=== PATIENT | male | born 1980 | race Hispanic/Latino ===

== ENCOUNTER 2018-05-13 09:44 | Emergency (ER) | payer SELFPAY ==
[2018-05-13 10:31] VITALS: RESP 18; TEMP 98.5
[2018-05-13] MEDS ORDERED: Sodium Chloride 0.9% 1,000 ML IV STA ×2 (11:01→14:45)
[2018-05-13 11:24] LABS: BASO # 0.04 K/mm3 (0.0-2.0); BASO % 0.6 % (0.0-3.0); EOS # 0.1 (0.0-0.7); EOS % 0.7 % (1.5-5.0); GRAN # 5.01 (1.4-6.5); GRAN % 70.2 % (50.0-68.0); HEMOGLOBIN 15.9 g/dL (14.0-18.0); LYMPH # 1.5 (1.2-3.4); LYMPH % 21.1 % (22.0-35.0); MEAN CELL VOLUME 89.8 fl (80.0-105.0); MEAN CORPUSCULAR HEMOGLOBIN 31.1 pg (25.0-35.0); MEAN CORPUSCULAR HGB CONC 34.6 g/dl (31.0-37.0); MEAN PLATELET VOLUME 9.5 fl (7.0-11.0); MONO # 0.5 (0.1-0.6); MONO % 7.4 % (1.0-6.0); RBC 5.12 10^6/uL (3.5-6.1); RED CELL DISTRIBUTION WIDTH 12.6 % (11.5-14.5); WHITE BLOOD COUNT 7.1 10^3/uL (4.5-11.0)
[2018-05-13 11:30] LABS: INR 0.95; PARTIAL THROMBOPLASTIN TIME 27.1 Seconds (25.1-36.5); PROTHROMBIN TIME 10.9 SECONDS (9.4-12.5)
[2018-05-13] MEDS ORDERED: Morphine 2 mg/ml ISec IVP STA ×2 (12:07→14:23)
[2018-05-13 12:08] LABS: URINE BILIRUBIN NEGATIVE (NEGATIVE); URINE BLOOD NEGATIVE (NEGATIVE); URINE GLUCOSE (UA) NEGATIVE (NEGATIVE); URINE LEUKOCYTE ESTERASE NEGATIVE Leu/uL (NEGATIVE); URINE PROTEIN NEGATIVE mg/dL (<30 mg/dL); URINE UROBILINOGEN 0.2 E.U./dL (<1 E.U./dL)
[2018-05-13 12:13] LABS: URINE APPEARANCE CLEAR (CLEAR); URINE COLOR YELLOW (YELLOW)
[2018-05-13 12:25] LABS: ALB/GLOB RATIO 1.4 (1.1-1.8); ALBUMIN 4.7 g/dL (3.0-4.8); ALT/SGPT 42 U/L (7-56); AMYLASE 100 U/L (35-125); AST/SGOT 39 U/L (17-59); BLOOD UREA NITROGEN 16 mg/dL (7-21); CALCIUM 9.6 mg/dL (8.4-10.5); GFR NON-AFRICAN AMERICAN > 60; LIPASE 78 U/L (23-300)
[2018-05-13 12:35] LABS: TROPONIN I < 0.01 ng/mL
[2018-05-13] MEDS ORDERED: Iohexol 350 MG/100 ML VIAL ONE (12:39)
--- NOTE | 2018-05-13 13:06 | RAD ---
HISTORY: abdominal pain COMPARISON: None available. TECHNIQUE: Chest, one view. FINDINGS: LUNGS: Mild right basilar atelectasis/infiltrate. No focal consolidation. Please note that chest x-ray has limited sensitivity for the detection of pulmonary masses. PLEURA: No significant pleural effusion identified. No definite pneumothorax . CARDIOVASCULAR: Heart size appears within normal limits. No significant atherosclerotic calcification present. OSSEOUS STRUCTURES: No acute osseous abnormality identified. VISUALIZED UPPER ABDOMEN: Unremarkable. OTHER FINDINGS: None. IMPRESSION: Mild bibasilar atelectasis/infiltrate.
--- NOTE | 2018-05-13 13:43 | CT ---
Date of service: 05/13/2018 PROCEDURE: CT Abdomen and Pelvis with contrast HISTORY: abdominal pain, h/o obstruction, h/o colectomy COMPARISON: None available TECHNIQUE: Contrast dose: 100 mL Omnipaque 350 IV Radiation dose: Total exam DLP = 674.44 mGy-cm. This CT exam was performed using one or more of the following dose reduction techniques: Automated exposure control, adjustment of the mA and/or kV according to patient size, and/or use of iterative reconstruction technique. FINDINGS: LOWER THORAX: No visible consolidation, pleural effusion, or pneumothorax. LIVER: Unremarkable. GALLBLADDER AND BILE DUCTS: Unremarkable. PANCREAS: Unremarkable. SPLEEN: Unremarkable. ADRENALS: Unremarkable. KIDNEYS AND URETERS: The kidneys enhance symmetrically. No hydronephrosis or obstructing calculus identified. VASCULATURE: No aortic aneurysm. No atherosclerotic calcification or mural plaque present. BOWEL: Stomach is nondistended. Lack of oral contrast limits evaluation for bowel pathology. No evidence of small-bowel obstruction. Evidence of subtotal colectomy with ileosigmoid anastomosis. APPENDIX: PERITONEUM: No significant free fluid. No definite free air. LYMPH NODES: No bulky adenopathy identified. BLADDER: Unremarkable. REPRODUCTIVE: Unremarkable. BONES: No acute osseous abnormality is detected. OTHER FINDINGS: None. IMPRESSION: No evidence of small-bowel obstruction. Incidental findings as above.
--- NOTE | 2018-05-13 14:45 | ED PDOC ---
Arrival/HPI - General Chief Complaint: Abdominal Pain - History of Present Illness Narrative History of Present Illness (Text): 38 y/o male with PMH of ulcerative colitis [s/p colectomy with J pouch] and SBO presents to ED c/o abdominal pain x 2 days. Pain is sharp, located primarily in upper abdomen without radiation. Associated nausea today with decreased PO intake. States this feels similar to prior SBO. Having BM per baseline, last this morning. States he drank a redbull this morning. Denies fevers, chills, diarrhea, vomiting, chest pain, SOB, hematemesis, back pain, neck pain, headache, dizziness, calf pain, calf swelling, or any other associated complaints. Past Medical History - Gastrointestinal Hx Colitis: Yes - Psychiatric Hx Substance Use: No - Surgical History Other/Comment: large intestine removed. bowel obstruction - Anesthesia Hx Anesthesia: Yes Hx Anesthesia Reactions: No Hx Malignant Hyperthermia: No Family/Social History - Physician Review Nursing Documentation Reviewed: Yes Family/Social History: No Known Family HX Smoking Status: Never Smoked Hx Alcohol Use: No Hx Substance Use: No Allergies/Home Meds Allergies/Adverse Reactions: Allergies No Known Allergies Allergy (Verified 05/13/18 10:27) Review of Systems - Physician Review All systems were reviewed & negative as marked: Yes - Review of Systems Constitutional: Normal. absent: Fevers Eyes: Normal. absent: Vision Changes ENT: Normal. absent: Sore Throat, Sinus Congestion Respiratory: Normal. absent: SOB, Cough Cardiovascular: Normal. absent: Chest Pain, Palpitations Gastrointestinal: Abdominal Pain, Diarrhea, Nausea, Appetite Changes. absent: Stool Changes, Constipation, Vomiting, Hematochezia, Food Intolerance Genitourinary Male: Normal. absent: Dysuria, Frequency Musculoskeletal: Normal. absent: Arthralgias, Back Pain Skin: Normal. absent: Rash Neurological: Normal. absent: Headache, Dizziness Endocrine: Normal. absent: Diaphoresis Hemo/Lymphatic: Normal Psychiatric: Normal Physical Exam Vital Signs Reviewed: Yes Vital Signs Temp Pulse Resp BP Pulse Ox 05/13/18 12:04 94 H 18 138/94 H 97 05/13/18 09:44 98.5 F 116 H 18 148/97 H 97 Temperature: Afebrile Blood Pressure: Normal Pulse: Regular Respiratory Rate: Normal Appearance: Positive for: Well-Appearing, Non-Toxic, Comfortable Pain Distress: None Mental Status: Positive for: Alert and Oriented X 3 - Systems Exam Head: Present: Atraumatic, Normocephalic Pupils: Present: PERRL Extroacular Muscles: Present: EOMI Conjunctiva: Present: Normal Mouth: Present: Moist Mucous Membranes Neck: Present: Normal Range of Motion Respiratory/Chest: Present: Clear to Auscultation, Good Air Exchange. No: Respiratory Distress, Accessory Muscle Use Cardiovascular: Present: Regular Rate and Rhythm, Normal S1, S2. No: Murmurs Abdomen: Present: Tenderness (epigastric, periumbilibal), Normal Bowel Sounds. No: Distention, Peritoneal Signs, Rebound, Guarding Back: Present: Normal Inspection Upper Extremity: Present: Normal Inspection, Normal ROM, NORMAL PULSES, Neurovascularly Intact, Capillary Refill < 2s. No: Cyanosis, Edema Lower Extremity: Present: Normal Inspection, NORMAL PULSES, Normal ROM, Neurovascularly Intact. No: Edema Neurological: Present: GCS=15, CN II-XII Intact, Speech Normal, Motor Func Grossly Intact, Normal Sensory Function, Gait Normal Skin: Present: Warm, Dry, Normal Color. No: Rashes Psychiatric: Present: Alert, Oriented x 3, Normal Insight, Normal Concentration, Normal Affect, Normal Mood Medical Decision Making ED Course and Treatment: Initial Plan: * CBC, CMP * Lipase * Coags * UA, culture * EKG * CXR * CT Abd/Pelvis with IV contrast * Toradol * IVF * Zofran Labwork unremarkable EKG shows snius tachycardia, otherwise normal; troponin negative CXR shows no active disease, no free air Patient's pain unrelieved with Toradol, will give morphine. Reports resolution of pain with morphine. Although heart rate has improved marginally with fluids, patient continues to be tachycardic. Continues to deny chest pain/pressure/heaviness or SOB. Not hypoxic. Pt very well appearing. Denies substance use. Admits to drinking redbull this morning. Case discussed with ED attending Dr. Corbin, who recommends no further laboratory testing, but instead another liter of fluid and reevaluation. Patient unwilling to stay for further IVF, observation, or evaluation. Asking to sign out AMA. The patient is choosing to leave against medical advice. I have personally explained to the patient that choosing to do so may result in permanent bodily harm, disability, or . I have discussed at great length that without further evaluation and monitoring there may be unforeseen circumstances and/or deterioration causing permanent bodily harm or as a result of their choice. The patient is alert, oriented, and shows the mental capacity to make clear decisions regarding the patients health care at this time. The patient continues to wish to leave against medical advice. In light of the patients decision to leave against medical advice, follow-up has been arranged and the patient is aware of the importance to following up as instructed. The patient has been advised that they should return to the emergency room immediately if they change their mind at any time, or if their condition begins to change or worsen in any way. Patient advised to followup as soon as possible with PMD or clinic within 2 days, as well as with GI specialist. Patient states he will followup as soon as possible. Advised to return with any new/worsening symptoms - Lab Interpretations Lab Results: 05/13/18 11:05 05/13/18 11:27 Lab Results 05/13/18 13:52: Influenza Typ A,B (EIA) Negative for flu a/b 05/13/18 11:27: Sodium 137, Potassium 3.9, Chloride 101, Carbon Dioxide 26, Anion Gap 13, BUN 16, Creatinine 0.8, Est GFR ( Amer) > 60, Est GFR (Non- Af Amer) > 60, Random Glucose 100, Calcium 9.6, Total Bilirubin 0.6, AST 39, ALT 42, Alkaline Phosphatase 96, Troponin I < 0.01, Total Protein 7.9, Albumin 4.7, Globulin 3.3, Albumin/Globulin Ratio 1.4, Amylase 100, Lipase 78 05/13/18 11:27: Urine Color Yellow, Urine Appearance Clear, Urine pH 6.0, Ur Specific [place] 1.025, Urine Protein Negative, Urine Glucose (UA) Negative, Urine Ketones Negative, Urine Blood Negative, Urine Nitrate Negative, Urine Bilirubin Negative, Urine Urobilinogen 0.2, Ur Leukocyte Esterase Negative 05/13/18 11:05: PT 10.9, INR 0.95, APTT 27.1 05/13/18 11:05: WBC 7.1, RBC 5.12, Hgb 15.9, Hct 46.0, MCV 89.8, MCH 31.1, MCHC 34.6, RDW 12.6, Plt Count 205, MPV 9.5, Gran % 70.2 H, Lymph % (Auto) 21.1 L, [place] % (Auto) 7.4 H, Eos % (Auto) 0.7 L, Baso % (Auto) 0.6, Gran # 5.01, Lymph # (Auto) 1.5, [place] # (Auto) 0.5, Eos # (Auto) 0.1, Baso # (Auto) 0.04 I have reviewed the lab results: Yes - RAD Interpretation Narrative RAD Interpretations (Text): CXR: No active disease CT Abd/Pelvis with IV contrast: Impression: No small bowel obstruction. Evidence of subtotal colectomy with ileosigmoid anastomosis. Radiology Orders: 05/13/18 10:59 ABD & PELVIS IV CONTRAST ONLY [CT] Stat 05/13/18 12:01 CHEST PORTABLE [RAD] Stat Career Discovery Teacher: Radiologist - EKG Interpretation EKG Interpretation (Text): Rate 112; sinus tachycardia; normal intervals; No STEMI or other signs of ischemia Interpreted by ED Physician: Yes Type: 12 lead EKG Comparison: No previous EKG avail. - Medication Orders Current Medication Orders: Discontinued Medications Famotidine (Pepcid) 20 mg IVP STAT STA Stop: 05/13/18 11:00 Last Admin: 05/13/18 11:15 Dose: 20 mg IVP Administration Document 05/13/18 11:15 LA (Rec: 05/13/18 11:15 LA [id number]) Charges for Administration # of IVP Administrations 1 Sodium Chloride (Sodium Chloride 0.9%) 1,000 mls @ 999 mls/hr IV .Q1H1M STA Stop: 05/13/18 12:01 Last Admin: 05/13/18 11:17 Dose: 999 mls/hr eMAR Start Stop Document 05/13/18 11:17 LA (Rec: 05/13/18 11:17 LA [id number]) Intravenous Solution Start Date 05/13/18 Start Time 11:17 End Date 05/13/18 End time 12:18 Total Infusion Time 61 Ketorolac Tromethamine (Toradol) 15 mg IVP STAT STA Stop: 05/13/18 11:00 Last Admin: 05/13/18 11:15 Dose: 15 mg MAR Pain Assessment Document 05/13/18 11:15 LA (Rec: 05/13/18 11:16 LA [id number]) Pain Reassessment Is this a pain reassessment? No Sleep Is patient sleeping during reassessment? No Presence of Pain Presence of Pain Yes Location Pain Location Body Site Abdomen IVP Administration Document 05/13/18 11:15 LA (Rec: 05/13/18 11:16 LA [id number]) Charges for Administration # of IVP Administrations 1 Morphine Sulfate (Morphine) 2 mg IVP STAT STA Stop: 05/13/18 12:08 Last Admin: 05/13/18 12:15 Dose: 2 mg MAR Pain Assessment Document 05/13/18 12:15 LA (Rec: 05/13/18 12:15 LA [id number]) Pain Reassessment Is this a pain reassessment? Yes Sleep Is patient sleeping during reassessment? No Presence of Pain Presence of Pain Yes Pain Scale Used Protocol: [facility] Pain Scale Used Numeric Location Pain Location Body Site Abdomen Description Intensity of Pain at present 8 IVP Administration Document 05/13/18 12:15 LA (Rec: 05/13/18 12:15 LA [id number]) Charges for Administration # of IVP Administrations 1 Morphine Sulfate (Morphine) 2 mg IVP STAT STA Stop: 05/13/18 14:24 Last Admin: 05/13/18 14:41 Dose: 2 mg MAR Pain Assessment Document 05/13/18 14:41 LA (Rec: 05/13/18 14:41 LA [id number]) Pain Reassessment Is this a pain reassessment? Yes Sleep Is patient sleeping during reassessment? No Pain Scale Used Protocol: [facility] Pain Scale Used Numeric Location Pain Location Body Site Abdomen IVP Administration Document 05/13/18 14:41 LA (Rec: 05/13/18 14:41 LA [id number]) Charges for Administration # of IVP Administrations 1 Ondansetron HCl (Zofran Inj) 4 mg IVP STAT STA Stop: 05/13/18 11:00 Last Admin: 05/13/18 11:14 Dose: 4 mg IVP Administration Document 05/13/18 11:14 LA (Rec: 05/13/18 11:14 LA [id number]) Charges for Administration # of IVP Administrations 1 Disposition/Present on Arrival - Present on Arrival Any Indicators Present on Arrival: No History of DVT/PE: No History of Uncontrolled Diabetes: No Urinary Catheter: No History of Decub. Ulcer: No History Surgical Site Infection Following: None - Disposition Have Diagnosis and Disposition been Completed?: No Diagnosis: Abdominal pain, Left against medical advice Disposition: AGAINST MEDICAL ADVICE Disposition Time: 15:00 Condition: IMPROVED Discharge Instructions (ExitCare): Acute Abdomen (Belly Pain), Nausea and Vomiting, Adult (DC), Leaving Against Medical Advice Additional Instructions: Increase fluids [place] diet Followup with GI within 2 days Followup with primary doctor within 2 days Please return if you wish to be re-evaluated or if new/worsening symptoms appear Referrals: [facility] [place]] - Follow up with primary Blaine Mederos MD [Medical Doctor] - Follow up with primary Dede Flores MD [Medical Doctor] - Follow up with primary Forms: [facility] ([place]ian), WORK NOTE
--- NOTE | 2018-05-13 15:18 | CARD ---
APPROVED REPORT Date of service: 05/13/2018 EKG Measurement Heart [id number] CT [id number] <Conclusion> Sinus tachycardia Otherwise normal ECG
[2018-05-13 15:36] VITALS: BP 138/89; PULSE 100; O2SAT 98
== END 2018-05-13 15:25 | disposition left against medical advice (07) ==
LOC: ED 09:44
DX: R10.9 Unspecified abdominal pain (principal); K51.90 Ulcerative colitis, unspecified, without complications; K56.609 Unspecified intestinal obstruction, unspecified as to partial versus complete obstruction; Z90.49 Acquired absence of other specified parts of digestive tract
CPT/HCPCS: 71045; 74177; 80053; 81003; 82150; 83690; 84484; 85025; 85610; 85730; 87086; 87804; 93005; 96361; 96374; 96375; 96376; 99284; J1885; J2270; J2405; J7030; Q9967